=== PATIENT | male | born 1965 | race African-American/Black ===

== ENCOUNTER 2024-03-26 16:16 | Emergency (ER) | payer SELFPAY ==
[2024-03-26] MEDS ORDERED: lamoTRIgine 25 MG TAB PO SCH (17:45)
[2024-03-26 17:58] LABS: #Basophils Less than 0.03 10x3/uL (0.0-0.2); #Eosinophils Less than 0.03 10x3/uL (0.0-0.7); %Basophils 0.1 % (0.0-1.0); %Eosinophils 0.1 % (0.0-10.0); %Lymphocytes 4.4 % (21.0-51.0); %Monocytes 4.2 % (0.0-10.0); %Neutrophils 90.4 % (42.0-75.0); Hematocrit 44.5 % (42.0-52.0); Hemoglobin 14.3 g/dL (14.0-18.0); Mean Corpuscular HGB CONC 32.1 g/dL (32.0-36.0); Mean Corpuscular Hemoglobin 26.1 pg (27.0-31.0); Mean Corpuscular Volume 81.2 fL (78.0-98.0); Mean Platelet Volume 9.2 fL (7.4-10.4); Platelet Count 337 10x3/uL (130-400); RBC Distribution Width 14.8 % (11.5-14.5); Red Blood Cell (RBC) Count 5.48 mill/uL (4.70-6.10)
[2024-03-26 18:17] LABS: Lipase 33 U/L (8-78)
[2024-03-26 18:19] LABS: Acetaminophen Less than 10 mcg/mL (Less than 10); Alcohol Less than 10.0 mg/dL (Less than 10); Salicylate Less than 8.0 mg/dL (Less than 8.0)
[2024-03-26 18:20] LABS: ALT (SGPT) 38 U/L (8-55); AST (SGOT) 26 U/L (5-34); Albumin 4.1 g/dL (3.5-5.0); Alkaline Phosphatase 166 U/L (40-110); Anion Gap 19 mmol/L (10-20); BUN (Urea Nitrogen) 11 mg/dL (8.4-25.7); Bilirubin, Total 0.2 mg/dL (0.2-1.2); Calc. Creatinine Clearance 0 mL/min (70-130); Calcium 9.7 mg/dL (7.8-10.44); Carbon Dioxide 17 mmol/L (22-29); Chloride 107 mmol/L (98-107); Estimated GFR 86; Globulin 4.7 g/dL (2.4-3.5); Glucose 133 mg/dL (70-105); Protein, Total 8.8 g/dL (6.0-8.3); Sodium 139 mmol/L (136-145)
[2024-03-26] MEDS ORDERED: LORazepam 2 MG/ML SYR.(CARPUJECT) ONE (18:20)
[2024-03-26 18:29] LABS: Troponin I 0.015 ng/mL (< 0.028)
== END 2024-03-26 21:40 | disposition home or self-care (01) ==
LOC: ERS 16:16
DX: G40.909 Epilepsy, unspecified, not intractable, without status epilepticus (principal); I10 Essential (primary) hypertension
CPT/HCPCS: 36415; 70450; 71045; 80053; 80307; 83690; 84443; 84484; 85025; 93005; 96372; J2060